=== PATIENT | female | born 1965 | race American Indian/Alaskan Native ===

== ENCOUNTER 2020-09-24 22:32 | Emergency (ER) | payer OTHER ==
[~2020-09-24] VITALS: Ht 157.5 cm; Wt 77.1 kg
[~2020-09-24 22:32] MED LIST: CITA20 PO; TOPI25 PO
[2020-09-24] MEDS ORDERED: ALPR.25 PO (23:14)
[2020-09-24 23:15] LABS: BASOPHILS ABSOLUTE AUTO 0.04 K/mm3 (0.00-0.23); BASOPHILS PERCENT AUTO 0 % (0-2); EOSINOPHILS PERCENT AUTO 3 % (0-6); Hematocrit 33.9 % (33.0-51.0); Hemoglobin 10.7 g/dL (11.5-16.0); IMMATURE GRAN ABSOLUTE AUTO 0.04 K/mm3 (0.00-0.10); IMMATURE GRAN PERCENT AUTO 0 % (0-1); LYMPHOCYTES ABSOLUTE AUTO 3.06 K/mm3 (0.84-5.20); LYMPHOCYTES PERCENT AUTO 34 % (21-46); MONOCYTES ABSOLUTE AUTO 0.66 K/mm3 (0.16-1.47); MONOCYTES PERCENT AUTO 7 % (4-13); Mean Corpuscular HGB 27.1 pg (26.0-34.0); Mean Corpuscular HGB Conc 31.6 g/dL (31.5-36.5); Mean Corpuscular Volume 86 fL (80-100); Mean Platelet Volume 10.2 fL (9.1-12.4); NEUTROPHILS ABSOLUTE AUTO 4.99 K/mm3 (1.96-9.15); NEUTROPHILS PERCENT AUTO 55 % (41-73); Platelet Count 335 K/mm3 (150-400); RDW Coefficient Variation 12.7 % (11.7-14.2); Red Blood Cell Count 3.95 M/mm3 (3.80-5.20); White Blood Cell Count 9.09 K/mm3 (4.00-11.30)
[2020-09-24 23:32] LABS: Albumin, Blood 2.8 g/dL (3.4-5.0); Albumin/Globulin Ratio 0.7 (0.8-1.8); Bilirubin, Total 0.3 mg/dL (0.1-1.0); Bun/Creatinine Ratio 9.9 (12.0-20.0); Calcium, Blood 9.5 mg/dL (8.5-10.1); Creatinine, Blood 1.51 mg/dL (0.40-1.00); Globulin, Blood 4.3 g/dL (2.2-4.0); Potassium, Blood 3.2 mmol/L (3.5-5.5); Total Protein, Blood 7.1 g/dL (6.4-8.2)
[2020-09-24 23:36] LABS: Source, Urine Clean Catch
[2020-09-24 23:44] LABS: Bilirubin, Urine Neg (Neg); Blood, Urine 2+ (Neg); Glucose Qualitative, Urine Neg (Neg); Ketones, Urine Neg (Neg); Leukocyte Esterase, Urine 1+ (Neg); Nitrite, Urine Neg (Neg); Protein, Urine 2+ (Neg); Urobilinogen, Urine NORM (Normal)
[2020-09-24 23:48] LABS: Appearance, Urine Clear (Clear); Color, Urine Yellow (P-Yellow)
[2020-09-24 23:58] LABS: Bacteria Few /hpf; Red Blood Cells, Urine 0-2 /hpf (0-2); Squamous Epithelial Cells Few /hpf (Few)
[2020-09-25] MEDS ORDERED: Percocet 5-3251 EACH PO (00:42)
[2020-09-25] MEDS ORDERED: Flomax0.4 MG PO (00:42)
[2020-09-25] MEDS ORDERED: ONDA4ODT MM (00:42)
== END 2020-09-25 01:00 | disposition home or self-care (01) ==
LOC: ER 22:32
PROVIDERS: Emergency Medicine
DX: N13.2 Hydronephrosis with renal and ureteral calculous obstruction (principal); Z88.8 Allergy status to other drugs, medicaments and biological substances; Z79.899 Other long term (current) drug therapy
CPT/HCPCS: 36415; 74176; 80053; 81001; 83690; 85025; 87086; 96374; 96375; 96376; 99284-25; A9270; A9270-GY; J1170; J2405

== ENCOUNTER 2020-10-09 12:24 | Emergency (ER) | payer OTHER ==
[~2020-10-09] VITALS: Ht 157.5 cm; Wt 59.0 kg
[~2020-10-09 12:24] MED LIST changes: +ALPR.25 PO; +Flomax0.4 MG PO; +ONDA4ODT MM; +Percocet 5-3251 EACH PO
[2020-10-09 13:00] LABS: BASOPHILS ABSOLUTE AUTO 0.07 K/mm3 (0.00-0.23); BASOPHILS PERCENT AUTO 1 % (0-2); EOSINOPHILS ABSOLUTE AUTO 0.18 K/mm3 (0.00-0.68); EOSINOPHILS PERCENT AUTO 1 % (0-6); Hematocrit 37.1 % (33.0-51.0); Hemoglobin 11.5 g/dL (11.5-16.0); IMMATURE GRAN ABSOLUTE AUTO 0.04 K/mm3 (0.00-0.10); IMMATURE GRAN PERCENT AUTO 0 % (0-1); LYMPHOCYTES ABSOLUTE AUTO 3.63 K/mm3 (0.84-5.20); LYMPHOCYTES PERCENT AUTO 28 % (21-46); MONOCYTES ABSOLUTE AUTO 0.86 K/mm3 (0.16-1.47); MONOCYTES PERCENT AUTO 7 % (4-13); Mean Corpuscular HGB 27.1 pg (26.0-34.0); Mean Corpuscular Volume 87 fL (80-100); Mean Platelet Volume 9.7 fL (9.1-12.4); NEUTROPHILS ABSOLUTE AUTO 8.14 K/mm3 (1.96-9.15); NEUTROPHILS PERCENT AUTO 63 % (41-73); Platelet Count 476 K/mm3 (150-400); RDW Coefficient Variation 13.2 % (11.7-14.2); RDW Standard Deviation 42.1 fL (35.1-46.3); Red Blood Cell Count 4.25 M/mm3 (3.80-5.20); White Blood Cell Count 12.92 K/mm3 (4.00-11.30)
[2020-10-09 13:13] LABS: Albumin, Blood 3.6 g/dL (3.4-5.0); Albumin/Globulin Ratio 0.8 (0.8-1.8); Bilirubin, Total 0.3 mg/dL (0.1-1.0); Bun/Creatinine Ratio 15.4 (12.0-20.0); Creatinine, Blood 1.04 mg/dL (0.40-1.00); Globulin, Blood 4.5 g/dL (2.2-4.0); Potassium, Blood 3.6 mmol/L (3.5-5.5); Total Protein, Blood 8.1 g/dL (6.4-8.2)
[2020-10-09 13:31] LABS: Source, Urine Clean Catch
[2020-10-09 13:39] LABS: Appearance, Urine Hazy (Clear); Bilirubin, Urine Neg (Neg); Blood, Urine 5+ (Neg); Color, Urine Yellow (P-Yellow); Glucose Qualitative, Urine Neg (Neg); Ketones, Urine 1+ (Neg); Leukocyte Esterase, Urine 1+ (Neg); Nitrite, Urine Neg (Neg); Protein, Urine 4+ (Neg); Urobilinogen, Urine NORM (Normal)
[2020-10-09 14:08] LABS: Bacteria Rare /hpf; Red Blood Cells, Urine TNTC /hpf (0-2); Squamous Epithelial Cells Rare /hpf (Few)
[2020-10-09] MEDS ORDERED: CITA20 PO (14:33)
[2020-10-09] MEDS ORDERED: ALPR1 PO (14:34)
[2020-10-09] MEDS ORDERED: VITAMIN D310 MC4 (14:34)
[2020-10-09] MEDS ORDERED: Percocet 5-3251 EACH PO (15:03)
[2020-10-09] MEDS ORDERED: Flomax0.4 MG PO (15:03)
[2020-10-09] MEDS ORDERED: PROM25 PO (15:03)
[2020-10-09] MEDS ORDERED: ONDA4ODT MM (15:03)
== END 2020-10-09 16:00 | disposition other institution (70) ==
LOC: ER 12:24
PROVIDERS: Emergency Medicine
DX: N13.2 Hydronephrosis with renal and ureteral calculous obstruction (principal); Z79.899 Other long term (current) drug therapy; Z87.442 Personal history of urinary calculi; Z88.8 Allergy status to other drugs, medicaments and biological substances
CPT/HCPCS: 36415; 76770; 80053; 81001; 83690; 85025; 87086; 96361; 96374; 96375; 99284-25; J1170; J1885; J2060; J2405; J7030

== ENCOUNTER 2020-12-08 18:12 | Emergency (ER) | payer OTHER ==
[~2020-12-08] VITALS: Ht 157.5 cm; Wt 77.1 kg
[~2020-12-08 18:12] MED LIST changes: +ALPR1 PO; +PROM25 PO; +VITAMIN D310 MC4
[2020-12-08] MEDS ORDERED: OMEP20ER PO (19:51)
[2020-12-08] MEDS ORDERED: Seroquel Xr50 MG PO (19:52)
[2020-12-08 20:07] LABS: BASOPHILS ABSOLUTE AUTO 0.08 K/mm3 (0.00-0.23); BASOPHILS PERCENT AUTO 1 % (0-2); EOSINOPHILS ABSOLUTE AUTO 0.21 K/mm3 (0.00-0.68); EOSINOPHILS PERCENT AUTO 2 % (0-6); Hematocrit 38.6 % (33.0-51.0); Hemoglobin 12.4 g/dL (11.5-16.0); IMMATURE GRAN ABSOLUTE AUTO 0.05 K/mm3 (0.00-0.10); IMMATURE GRAN PERCENT AUTO 0 % (0-1); LYMPHOCYTES ABSOLUTE AUTO 5.61 K/mm3 (0.84-5.20); LYMPHOCYTES PERCENT AUTO 39 % (21-46); MONOCYTES ABSOLUTE AUTO 0.79 K/mm3 (0.16-1.47); MONOCYTES PERCENT AUTO 6 % (4-13); Mean Corpuscular HGB 26.7 pg (26.0-34.0); Mean Corpuscular HGB Conc 32.1 g/dL (31.5-36.5); Mean Corpuscular Volume 83 fL (80-100); Mean Platelet Volume 10.3 fL (9.1-12.4); NEUTROPHILS ABSOLUTE AUTO 7.57 K/mm3 (1.96-9.15); NEUTROPHILS PERCENT AUTO 53 % (41-73); Platelet Count 555 K/mm3 (150-400); RDW Coefficient Variation 13.9 % (11.7-14.2); RDW Standard Deviation 41.7 fL (35.1-46.3); Red Blood Cell Count 4.65 M/mm3 (3.80-5.20); White Blood Cell Count 14.31 K/mm3 (4.00-11.30)
[2020-12-08 20:25] LABS: Source, Urine Clean Catch
[2020-12-08 20:27] LABS: Bilirubin, Urine Neg (Neg); Blood, Urine 5+ (Neg); Glucose Qualitative, Urine Neg (Neg); Ketones, Urine Neg (Neg); Leukocyte Esterase, Urine 2+ (Neg); Nitrite, Urine Neg (Neg); Protein, Urine 3+ (Neg); Urobilinogen, Urine NORM (Normal); pH, Urine 6.5 (5.0-8.0)
[2020-12-08 20:31] LABS: Albumin, Blood 3.7 g/dL (3.4-5.0); Albumin/Globulin Ratio 0.9 (0.8-1.8); Bilirubin, Total 0.1 mg/dL (0.1-1.0); Bun/Creatinine Ratio 16.5 (12.0-20.0); Calcium, Blood 9.8 mg/dL (8.5-10.1); Creatinine, Blood 1.03 mg/dL (0.40-1.00); Globulin, Blood 4.3 g/dL (2.2-4.0); Potassium, Blood 3.7 mmol/L (3.5-5.5)
[2020-12-08 20:42] LABS: Appearance, Urine Hazy (Clear); Color, Urine Yellow (P-Yellow)
[2020-12-08 20:44] LABS: Red Blood Cells, Urine 50-100 /hpf (0-2); Squamous Epithelial Cells Few /hpf (Few)
[2020-12-08 20:45] LABS: Bacteria Few /hpf
[2020-12-08] MEDS ORDERED: Percocet 5-3251 EACH PO (21:50)
== END 2020-12-08 22:00 | disposition home or self-care (01) ==
LOC: ER 18:12
PROVIDERS: Emergency Medicine
DX: T83.192A Other mechanical complication of indwelling ureteral stent, initial encounter (principal); Z88.8 Allergy status to other drugs, medicaments and biological substances; Z79.899 Other long term (current) drug therapy; Z87.442 Personal history of urinary calculi
CPT/HCPCS: 36415; 74176; 80053; 81001; 83605; 83690; 84145; 85025; 87086; 96365; 96375; 96376; 99284-25; A9270; J0696; J1170; J1885

== ENCOUNTER → 2021-05-06 | Outpatient (CLI) | payer OTHER ==
[~2021-05-06] MED LIST changes: +OMEP20ER PO; +Seroquel Xr50 MG PO
== END ==
LOC: LAB 18:26 → LAB SHORT 18:26
DX: R10.9 Unspecified abdominal pain (principal)
CPT/HCPCS: 87086

== ENCOUNTER → 2021-08-31 | Outpatient (CLI) | payer OTHER | END | disposition home or self-care (01) | LOC: LAB 14:00 → LAB SHORT 14:00 → LAB FUT 07-12 12:35 | DX: N20.0 Calculus of kidney (principal) | CPT/HCPCS: 81050 ==

== ENCOUNTER → 2022-08-02 | Outpatient (CLI) | payer OTHER | END | disposition home or self-care (01) | LOC: LAB SHORT 11:09 → PLD 11:09 | DX: D48.5 Neoplasm of uncertain behavior of skin (principal) | CPT/HCPCS: 88305 ==

== ENCOUNTER 2023-01-16 11:47 | Inpatient (IN) | payer OTHER ==
[~2023-01-16] VITALS: Ht 157.5 cm; Wt 90.7 kg
[2023-01-16] MEDS ORDERED: TAMSULOSIN HCL0.4 M1 PO (12:37)
[2023-01-16] MEDS ORDERED: QUET200 PO (12:38)
[2023-01-16] MEDS ORDERED: HYDROCODONE-AC1 EA19 PO (12:38)
[2023-01-16 12:49] LABS: Hematocrit 44.1 % (33.0-51.0); Hemoglobin 14.7 g/dL (11.5-16.0); Mean Corpuscular HGB 26.6 pg (26.0-34.0); Mean Corpuscular HGB Conc 33.3 g/dL (31.5-36.5); Mean Corpuscular Volume 80 fL (80-100); Mean Platelet Volume 10.4 fL (9.1-12.4); Platelet Count 383 K/mm3 (150-400); RDW Coefficient Variation 14.3 % (11.7-14.2); RDW Standard Deviation 41.1 fL (35.1-46.3); Red Blood Cell Count 5.53 M/mm3 (3.80-5.20); White Blood Cell Count 16.86 K/mm3 (4.00-11.30)
[2023-01-16 13:16] LABS: BASOPHILS PERCENT MAN 0 % (0-2); EOSINOPHILS PERCENT MAN 0 % (0-6); LYMPHOCYTES % ATYPICAL MANUAL 1 % (0-0); LYMPHOCYTES ABSOLUTE MAN 6.23 K/mm3 (0.84-5.20); LYMPHOCYTES PERCENT MAN 36 % (21-46); MONOCYTES ABSOLUTE MAN 0.67 K/mm3 (0.16-1.47); MONOCYTES PERCENT MAN 4 % (4-13); MYELOCYTE ABSOLUTE MAN 0.16 K/mm3 (0.00-0.00); MYELOCYTE PERCENT MAN 1 % (0-0); NEUTROPHILS ABSOLUTE MAN 9.77 K/mm3 (1.96-9.15); SEG NEUTROPHILS PERCENT MAN 58 % (41-73); TOTAL CELLS COUNTED 100
[2023-01-16 13:26] LABS: Bilirubin, Total 0.3 mg/dL (0.1-1.0); Bun/Creatinine Ratio 19.2 (12.0-20.0); Calcium, Blood 9.9 mg/dL (8.5-10.1); Creatinine, Blood 0.99 mg/dL (0.40-1.00); Globulin, Blood 4.1 g/dL (2.2-4.0); Potassium, Blood 3.6 mmol/L (3.5-5.5); Total Protein, Blood 8.1 g/dL (6.4-8.2)
[2023-01-16 13:49] LABS: Source, Urine Straight Cath
[2023-01-16 13:57] LABS: Bilirubin, Urine Neg (Neg); Blood, Urine 5+ (Neg); Color, Urine Yellow (P-Yellow); Glucose Qualitative, Urine Neg (Neg); Ketones, Urine 1+ (Neg); Leukocyte Esterase, Urine 1+ (Neg); Nitrite, Urine Neg (Neg); Protein, Urine 3+ (Neg); Specific Gravity, Urine 1.015 (1.003-1.022); Urobilinogen, Urine NORM (Normal)
[2023-01-16 14:05] LABS: Appearance, Urine Hazy (Clear); Bacteria Mod /hpf; Mucus Light (0-Heavy); Red Blood Cells, Urine 25-50 /hpf (0-2); Squamous Epithelial Cells Rare /hpf (Few)
[2023-01-16 14:30] LABS: Influenza A, PCR NEGATIVE (NEGATIVE); Influenza B, PCR NEGATIVE (NEGATIVE); Resp Syncytial Virus, PCR NEGATIVE (NEGATIVE); SARS-Cov-2 (COVID-19) PCR, MMC NEGATIVE (NEGATIVE)
[2023-01-16 19:25] VITALS: BP 123/74
[2023-01-16] MEDS ORDERED: POTCIT10 PO (19:26)
[2023-01-16 20:30] VITALS: BP 113/92
[2023-01-16 21:31] VITALS: BP 125/93
[2023-01-16 23:27] VITALS: BP 112/73
--- NOTE | 2023-01-17 04:04 | NUR ---
SHIFT SUMMARY ADMITTED FOR NEPHROLITHIASIS. FULL CODE. BILATERAL NEPHROSTOMY DRAINS IN PLACE AND PATENT. LEFT DOUBLE J STENT IN PLACE. DR. DAUGHERTY IS CONSULT. IV ANTIB RX ARE SCHEDULED. MEDICATED FOR PAIN TWICE THIS SHIFT, SEE EMAR. HOME MEDICATIONS ORDERED FOR EMAR PER HOSPITALIST REQUEST. REGULAR DIET STARTED PER HOSPITALIST REQUEST. SHE IS A&O X4, ON RA.
[2023-01-17 04:21] VITALS: BP 104/82
[2023-01-17 05:38] LABS: BASOPHILS ABSOLUTE AUTO 0.04 K/mm3 (0.00-0.23); BASOPHILS PERCENT AUTO 1 % (0-2); EOSINOPHILS ABSOLUTE AUTO 0.19 K/mm3 (0.00-0.68); EOSINOPHILS PERCENT AUTO 2 % (0-6); Hematocrit 35.2 % (33.0-51.0); Hemoglobin 11.3 g/dL (11.5-16.0); IMMATURE GRAN ABSOLUTE AUTO 0.03 K/mm3 (0.00-0.10); IMMATURE GRAN PERCENT AUTO 0 % (0-1); LYMPHOCYTES PERCENT AUTO 44 % (21-46); MONOCYTES ABSOLUTE AUTO 0.75 K/mm3 (0.16-1.47); MONOCYTES PERCENT AUTO 9 % (4-13); Mean Corpuscular HGB 26.3 pg (26.0-34.0); Mean Corpuscular HGB Conc 32.1 g/dL (31.5-36.5); Mean Corpuscular Volume 82 fL (80-100); Mean Platelet Volume 10.7 fL (9.1-12.4); NEUTROPHILS ABSOLUTE AUTO 3.77 K/mm3 (1.96-9.15); NEUTROPHILS PERCENT AUTO 45 % (41-73); Platelet Count 249 K/mm3 (150-400); RDW Coefficient Variation 14.3 % (11.7-14.2); RDW Standard Deviation 42.8 fL (35.1-46.3); Red Blood Cell Count 4.29 M/mm3 (3.80-5.20); White Blood Cell Count 8.48 K/mm3 (4.00-11.30)
[2023-01-17 06:10] LABS: Albumin/Globulin Ratio 0.9 (0.8-1.8); Bilirubin, Total 0.3 mg/dL (0.1-1.0); Bun/Creatinine Ratio 20.6 (12.0-20.0); Calcium, Blood 9.1 mg/dL (8.5-10.1); Creatinine, Blood 1.07 mg/dL (0.40-1.00); Globulin, Blood 3.3 g/dL (2.2-4.0); Potassium, Blood 3.4 mmol/L (3.5-5.5); Total Protein, Blood 6.3 g/dL (6.4-8.2)
[2023-01-17 07:42] VITALS: BP 109/71
[2023-01-17 15:02] VITALS: BP 107/74
--- NOTE | 2023-01-17 19:29 | NUR ---
SUMMARY- PT A/OX4, NEPHROSTOMY BILAT, PATENT AND DRAINING. R MED YELLOW, L SLIGHT COULTER TINGE. PT TOLERATING FOOD AND FLUIDS, PT DRINGING GOOD AMOUNT OF FLUIDS. TRIED TO GET UP TO VOID AT 1330 BECAUSE SHE FELT LIKE SHE MAY HAVE TO URINATE, BUT NOTHING CAME OUR. NEPH TUBES APPEAR WELL SECURE AND PINNED TO GOUN, USING GRAVITY TO DRAIN AT ALL TIMES. PT MEDICATED WITH IV DILAUDID APPROX Q2 ALL SHIFT, PLUS NORCO 10MG PO FOR SEVERE PAIN REPORTED 9/10 JUST BEFORE MEDICATING, AND EVIDENT PT SHAKING IN PAIN. MEDICATION HAS BEEN SUFFICIENT TO BRING PT TO TOLERABLE LEVEL. HOPING TO DECREASE ON IV PAIN MED SO PT CAN GO HOME ON [facility], WHILE AWAITING UROLOGY F/U IN [place]. REPORTED ALL TO RICARDO GARCIA RN.
[2023-01-17 19:50] VITALS: BP 142/84
[2023-01-18 03:26] VITALS: BP 134/81
--- NOTE | 2023-01-18 04:18 | NUR ---
SHIFT SUMMARY ADMITTED FOR HYDRONEPHROSIS. FULL CODE. PLAN IS FOR OUTPT SURGICAL/UROLOGY FOLLOW UP FOR KIDNEY STONE REMOVAL IN [place]. WE ARE WORKING ON MANAGING HER PAIN APPROPRIATELY BEFORE WE SEND HER HOME FROM HERE. IV AND PO PAIN RX GIVEN THIS SHIFT. REGULAR DIET. IR CONSULT IS DR. DAUGHERTY. SHE HAS BILATERAL NEPHROSTOMY TUBES AND A DOUBLE J STENT. HX OF KIDNEY STONES.
[2023-01-18 04:50] LABS: Hematocrit 36.4 % (33.0-51.0); Hemoglobin 11.9 g/dL (11.5-16.0); Mean Corpuscular HGB Conc 32.7 g/dL (31.5-36.5); Mean Corpuscular Volume 83 fL (80-100); Mean Platelet Volume 10.7 fL (9.1-12.4); Platelet Count 251 K/mm3 (150-400); RDW Coefficient Variation 14.5 % (11.7-14.2); RDW Standard Deviation 43.3 fL (35.1-46.3); Red Blood Cell Count 4.41 M/mm3 (3.80-5.20); White Blood Cell Count 7.55 K/mm3 (4.00-11.30)
[2023-01-18 05:21] LABS: Bun/Creatinine Ratio 16.3 (12.0-20.0); Calcium, Blood 8.7 mg/dL (8.5-10.1); Creatinine, Blood 0.92 mg/dL (0.40-1.00)
--- NOTE | 2023-01-18 06:38 | NUR ---
when I emptied left side nephrostomy bag it was 225 and was bloody in color. Right side was 225 and clear yellow in color with no odor to either side.
[2023-01-18 08:07] VITALS: BP 108/71
[2023-01-18] MEDS ORDERED: OXAYDO5 M2 PO (13:48)
--- NOTE | 2023-01-18 15:00 | NUR ---
DISCHARGE SUMMARY PT EDUCATED HOW TO EMPTY NEPHROSTOMY BAGS, MEDICATIONS, AND FOLLOW UP CARE. PT STATED UNDERSTANDING AND NO QUESTIONS OR CONCERNS. PT MOTHER AT BEDSIDE TO TRANSPORT PT TO [facility] TO SEE HER UROLOGIST. PT ESCORTED TO [facility]
== END 2023-01-18 14:58 | disposition home or self-care (01) | DRG 694 ==
LOC: ER 11:47 → MEDS 17:32
PROVIDERS: Emergency Medicine; Family Medicine; Internal Medicine; Student in an Organized Health Care Education/Training Program; ADMIT Internal Medicine
PROC: 0T9030Z Drainage of Right Kidney with Drainage Device, Percutaneous Approach (ICD-10-PCS; principal; 2023-01-16)
PROC: 0T9130Z Drainage of Left Kidney with Drainage Device, Percutaneous Approach (ICD-10-PCS; 2023-01-16)
PROC: 0T773DZ Dilation of Left Ureter with Intraluminal Device, Percutaneous Approach (ICD-10-PCS; 2023-01-16)
PROC: BT43ZZZ Ultrasonography of Bilateral Kidneys (ICD-10-PCS; 2023-01-16)
PROC: [UNRECOGNIZED PROCEDURE] (2023-01-16)
PROC: BT13YZZ Fluoroscopy of Bilateral Kidneys using Other Contrast (ICD-10-PCS; 2023-01-16)
PROC: BT17YZZ Fluoroscopy of Left Ureter using Other Contrast (ICD-10-PCS; 2023-01-16)
DX: N13.2 Hydronephrosis with renal and ureteral calculous obstruction (principal); E87.20 Acidosis, unspecified; F11.20 Opioid dependence, uncomplicated; R65.10 Systemic inflammatory response syndrome (SIRS) of non-infectious origin without acute organ dysfunction; F31.81 Bipolar II disorder; K21.9 Gastro-esophageal reflux disease without esophagitis; E78.5 Hyperlipidemia, unspecified; N18.2 Chronic kidney disease, stage 2 (mild); E87.6 Hypokalemia; M54.9 Dorsalgia, unspecified; G89.29 Other chronic pain; F43.23 Adjustment disorder with mixed anxiety and depressed mood; M60.9 Myositis, unspecified; F43.12 Post-traumatic stress disorder, chronic; M54.16 Radiculopathy, lumbar region; G25.81 Restless legs syndrome; I87.2 Venous insufficiency (chronic) (peripheral); Z20.822 Contact with and (suspected) exposure to COVID-19; Z93.6 Other artificial openings of urinary tract status; Z90.710 Acquired absence of both cervix and uterus; Z90.49 Acquired absence of other specified parts of digestive tract; Z87.442 Personal history of urinary calculi; Z90.722 Acquired absence of ovaries, bilateral; Z98.890 Other specified postprocedural states; Z88.8 Allergy status to other drugs, medicaments and biological substances; Z79.899 Other long term (current) drug therapy
CPT/HCPCS: 0241U; 36415; 50432; 50695; 71046; 74176; 76937; 80048; 80053; 81001; 83605; 85025; 85027; 87040; 87086; 96361-59; 96365-59; 96375-59; 99152; 99153; 99285-25; A9270; C1729; C1769; C1887; C1894; C2617; J0696; J1170; J1200; J1650; J1885; J2250; J2405; J3010; J7030; J7040; Q9967